=== PATIENT | female | born 1995 | race Two or more races ===

== ENCOUNTER 2018-08-15 07:27 | Emergency (ER) | payer OTHER ==
[~2018-08-15] VITALS: Ht 157.5 cm; Wt 90.7 kg
[~2018-08-15 07:27] MED LIST: AMOX1TAB12 PO; INTESTINEX1 CA1 PO; MUCINEX1200 MG/BO PO; NASONEX17 GM NS; PRENATAL CAPLE1 EACH PO
== END 2018-08-15 15:39 | disposition home or self-care (01) ==
LOC: ER 07:27
DX: R10.2 Pelvic and perineal pain (principal)

== ENCOUNTER 2020-04-05 10:24 | Emergency (ER) | payer OTHER ==
[~2020-04-05] VITALS: Ht 160 cm; Wt 110.2 kg
== END 2020-04-05 15:34 | disposition home or self-care (01) ==
LOC: ER 10:24
DX: O20.8 Other hemorrhage in early pregnancy (principal); Z3A.01 Less than 8 weeks gestation of pregnancy

== ENCOUNTER 2021-04-28 12:41 | Outpatient (CLI) | payer OTHER | END 2021-04-28 14:36 | disposition home or self-care (01) | LOC: PRENATAL 12:41 | PROVIDERS: ATTEND Obstetrics & Gynecology Maternal & Fetal Medicine | DX: O35.0XX1 Maternal care for (suspected) central nervous system malformation in fetus, fetus 1 (principal); O35.3XX1 Maternal care for (suspected) damage to fetus from viral disease in mother, fetus 1; O98.512 Other viral diseases complicating pregnancy, second trimester; O28.1 Abnormal biochemical finding on antenatal screening of mother; O99.212 Obesity complicating pregnancy, second trimester; Z36.89 Encounter for other specified antenatal screening; Z3A.21 21 weeks gestation of pregnancy ==

== ENCOUNTER 2021-08-27 07:45 | Inpatient (IN) | payer OTHER ==
[~2021-08-27] VITALS: Ht 160 cm; Wt 3.2 kg
[2021-09-01] MEDS ORDERED: FOLIC ACID0.8 M1 PO (08:47)
[2021-09-01] MEDS ORDERED: PRENATAL CAPLE1 EAC1 (08:48)
[2021-09-01] MEDS ORDERED: ZYRTEC10 MG PO (08:49)
== END 2021-09-04 15:48 | disposition home or self-care (01) | DRG 788 ==
LOC: SURH 08-31 07:45 → OB/GYN 09-01 08:21 → O/R 09-01 08:21 → OB/GYN 09-01 16:54
PROVIDERS: ADMIT Obstetrics & Gynecology; ATTEND Obstetrics & Gynecology
PROC: 4A1HXCZ Monitoring of Products of Conception, Cardiac Rate, External Approach (ICD-10-PCS; 2021-09-01)
PROC: 10D00Z1 Extraction of Products of Conception, Low, Open Approach (ICD-10-PCS; principal; 2021-09-01 14:15)
DX: O34.211 Maternal care for low transverse scar from previous cesarean delivery (principal); Z3A.39 39 weeks gestation of pregnancy; Z37.0 Single live birth; Z20.822 Contact with and (suspected) exposure to COVID-19

== ENCOUNTER 2022-05-05 21:00 | Emergency (ER) | payer OTHER ==
[~2022-05-05] VITALS: Ht 160 cm; Wt 108.4 kg
[~2022-05-05 21:00] MED LIST changes: +FOLIC ACID0.8 M1 PO; +PRENATAL CAPLE1 EAC1; +ZYRTEC10 MG PO
[2022-05-06] MEDS ORDERED: ALBUTEROL2.5 MG/3 M IH (05:39)
== END 2022-05-06 05:49 ==
LOC: ER 21:00
DX: O99.512 Diseases of the respiratory system complicating pregnancy, second trimester (principal); Z3A.14 14 weeks gestation of pregnancy; J45.909 Unspecified asthma, uncomplicated; Z20.822 Contact with and (suspected) exposure to COVID-19; Z88.8 Allergy status to other drugs, medicaments and biological substances; Z91.018 Allergy to other foods

== ENCOUNTER 2022-06-18 20:54 | Outpatient (CLI) | payer OTHER ==
[~2022-06-18 20:54] MED LIST changes: +ALBUTEROL2.5 MG/3 M IH
[2022-06-23] MEDS ORDERED: PROMETRIUM200 MG VAG (13:07)
== END 2022-06-19 18:16 | disposition home or self-care (01) ==
LOC: OBS/DEL 20:54
PROVIDERS: ATTEND Obstetrics & Gynecology
DX: O26.892 Other specified pregnancy related conditions, second trimester (principal); R10.2 Pelvic and perineal pain; Z3A.20 20 weeks gestation of pregnancy; Z20.822 Contact with and (suspected) exposure to COVID-19; Z88.8 Allergy status to other drugs, medicaments and biological substances; Z91.018 Allergy to other foods

== ENCOUNTER 2022-06-21 09:43 | Outpatient (CLI) | payer OTHER ==
[2022-06-23] MEDS ORDERED: PROMETRIUM200 MG VAG (13:07)
== END 2022-06-21 12:09 | disposition home or self-care (01) ==
LOC: PRENATAL 09:43
PROVIDERS: ATTEND Obstetrics & Gynecology Maternal & Fetal Medicine
DX: O35.9XX0 Maternal care for (suspected) fetal abnormality and damage, unspecified, not applicable or unspecified (principal); O35.3XX0 Maternal care for (suspected) damage to fetus from viral disease in mother, not applicable or unspecified; O99.210 Obesity complicating pregnancy, unspecified trimester; O26.879 Cervical shortening, unspecified trimester; O44.00 Complete placenta previa NOS or without hemorrhage, unspecified trimester; Z3A.21 21 weeks gestation of pregnancy; O34.219 Maternal care for unspecified type scar from previous cesarean delivery

== ENCOUNTER 2022-07-18 13:42 | Outpatient (CLI) | payer OTHER ==
[~2022-07-18 13:42] MED LIST changes: +PROMETRIUM200 MG VAG
== END 2022-07-18 14:42 | disposition home or self-care (01) ==
LOC: PRENATAL 13:42
PROVIDERS: ATTEND Obstetrics & Gynecology Maternal & Fetal Medicine
DX: O26.849 Uterine size-date discrepancy, unspecified trimester (principal); O34.219 Maternal care for unspecified type scar from previous cesarean delivery; O44.00 Complete placenta previa NOS or without hemorrhage, unspecified trimester; O43.219 Placenta accreta, unspecified trimester; Z3A.25 25 weeks gestation of pregnancy

== ENCOUNTER 2024-05-01 13:27 | Emergency (ER) | payer OTHER ==
[~2024-05-01] VITALS: Ht 160 cm; Wt 106.6 kg
[2024-05-01 14:41] VITALS: BP 114/76; O2SAT 100
[2024-05-01] MEDS ORDERED: KETOROLAC TROMETHAMINE 60 MG VIAL IM ONE ×2 (17:15→17:17)
[2024-05-01] MEDS ORDERED: CEFTRIAXONE SODIUM 1,000 MG VIAL IM ONE (17:15)
[2024-05-01] MEDS ORDERED: CEFTRIAXONE SODIUM 1,000 MG VIAL ONE (17:17)
[2024-05-01 17:47] LABS: HEMATOCRIT 44.7 % (36.0-45.00); HEMOGLOBIN 14.9 g/dL (12.0-15.00); MEAN CELL VOLUME 84.8 fL (80.00-100.00); MEAN CORPUSCULAR HEMOGLOBIN 28.2 pg (27.00-32.0); MEAN CORPUSCULAR HGB CONC 33.3 g/dl (32.0-36.0); PLATELET COUNT 205 K/uL (150-450); RED BLOOD COUNT 5.27 M/uL (4.00-6.00); RED CELL DISTRIBUTION WIDTH 13.2 % (11.5-14.5)
[2024-05-01 17:52] LABS: URINE APPEARANCE Clear; URINE BILIRRUBIN Negative (NEGATIVE); URINE BLOOD Negative; URINE COLOR Yellow; URINE GLUCOSE Negative (NEGATIVE); URINE KETONE 15 (NEGATIVE); URINE LEUKOCYTE Trace; URINE NITRATE Negative; URINE PROTEIN 30 (NEGATIVE); URINE UROBILINOGEN 0.2 E.U./dl
[2024-05-01 17:53] LABS: URINE BACTERIA 1267.9 uL (0.0-1933); URINE EPITHELIAL CELLS 54.7 uL (0.0-38.8); URINE WBC 78.3 uL (0.0-23.2)
[2024-05-01 18:15] LABS: URINE CAST 0.44 uL (0.0-1.40); URINE MUCUS HEAVY
[2024-05-01] MEDS ORDERED: AMOX1TAB5 PO (18:29)
[2024-05-01] MEDS ORDERED: PEPCID AC20 MG PO (18:29)
[2024-05-01] MEDS ORDERED: KETO10TA2 PO (18:30)
== END 2024-05-01 18:52 | disposition home or self-care (01) ==
LOC: ER 13:30
PROVIDERS: General Practice
DX: N73.0 Acute parametritis and pelvic cellulitis (principal); Z88.8 Allergy status to other drugs, medicaments and biological substances; Z87.09 Personal history of other diseases of the respiratory system